=== PATIENT | female | born 1980 | race Caucasian/White ===

== ENCOUNTER 2016-08-17 13:39 | Emergency (ER) | payer OTHER ==
--- NOTE | 2016-08-17 14:10 | ER Document Report ---
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 Patient notes her tongue was swelling was having some difficulty breathing. Patient denies any current complaints after receiving epinephrine. Notes symptoms have all completely resolved TRAVEL OUTSIDE OF THE U.S. IN LAST 30 DAYS: No - HPI Onset: Just prior to arrival Onset/Duration: Sudden Quality of pain: Fullness Severity: Moderate Pain Level: Denies Associated symptoms: Other Exacerbated by: Denies Relieved by: Denies Similar symptoms previously: Yes Recently seen / treated by doctor: No - Related Data Allergies/Adverse Reactions: peanut Allergy (Verified 08/17/16 14:04) Penicillins Allergy (Verified 08/17/16 14:04) Past Medical History - Social History Smoking Status: Unknown if Ever Smoked Cigarette use (# per day): No Chew tobacco use (# tins/day): No Smoking Education Provided: No Family History: Reviewed & Not Pertinent Patient has suicidal ideation: No Patient has homicidal ideation: No Renal/ Medical History: Denies: Hx Peritoneal Dialysis Traumatic Medical History: Reports: Hx Fractures - left ankle left wrist Past Surgical History: Reports: Hx Tonsillectomy, Hx Tubal Ligation - Immunizations Immunizations up to date: Yes Hx Diphtheria, Pertussis, Tetanus Vaccination: Yes Review of Systems - Review of Systems Notes: REVIEW OF SYSTEMS: CONSTITUTIONAL : Denies fever, chills, or sweats. Denies recent illness. EENT: Admits to tongue and throat swelling CARDIOVASCULAR: Denies chest pain. Denies palpitations or racing or irregular heart beat. Denies ankle edema. RESPIRATORY: Denies cough, cold, or chest congestion. Denies shortness of breath, difficulty breathing, or wheezing. GASTROINTESTINAL: Denies abdominal pain or distention. Denies nausea, vomiting , or diarrhea. Denies blood in vomitus, stools, or per rectum. Denies black, tarry stools. Denies constipation. GENITOURINARY: Denies difficulty urinating, painful urination, burning, frequency, blood in urine, or discharge. FEMALE GENITOURINARY: Denies vaginal bleeding, heavy or abnormal periods, irregular periods. Denies vaginal discharge or odor. MUSCULOSKELETAL: Denies back or neck pain or stiffness. Denies joint pain or swelling. SKIN: Denies rash, lesions or sores. HEMATOLOGIC : Denies easy bruising or bleeding. LYMPHATIC: Denies swollen, enlarged glands. NEUROLOGICAL: Denies confusion or altered mental status. Denies passing out or loss of consciousness. Denies dizziness or lightheadedness. Denies headache. Denies weakness or paralysis or loss of use of either side. Denies problems with gait or speech. Denies sensory loss, numbness, or tingling. Denies seizures. PSYCHIATRIC: Denies anxiety or stress. Denies depression, suicidal ideation, or homicidal ideation. ALL OTHER SYSTEMS REVIEWED AND NEGATIVE. Dictation was performed using [employer] voice recognition software PHYSICAL EXAMINATION: GENERAL: Well-appearing, well-nourished and in no acute distress. HEAD: Atraumatic, normocephalic. EYES: Pupils equal round and reactive to light, extraocular movements intact, conjunctiva are normal. ENT: Nares patent, oropharynx clear without exudates. Moist mucous membranes. NECK: Normal range of motion, supple without lymphadenopathy LUNGS: Breath sounds clear to auscultation bilaterally and equal. No wheezes rales or rhonchi. HEART: Regular rate and rhythm without murmurs ABDOMEN: Soft, nontender, nondistended abdomen. No guarding, no rebound. No masses appreciated. Female : deferred Musculoskeletal: Normal range of motion, no pitting or edema. No cyanosis. NEUROLOGICAL: Cranial nerves grossly intact. Normal speech, normal gait. Normal sensory, motor exams PSYCH: Normal mood, normal affect. SKIN: Warm, Dry, normal turgor, no rashes or lesions noted. Physical Exam - Vital signs Vitals: Resp BP Pulse Ox 19 141/72 H 100 08/17/16 13:59 08/17/16 13:59 08/17/16 13:59 Course - Re-evaluation Re-evalutation: 08/17/16 14:06 Patient instructed that she will have to stay to be washing the emergency department for at least 8 hours, she begs to leave sooner, I spent to her that this is not appropriate, but will abide by her request 08/17/16 14:56 Patient notified me that she wishes to leave. I explained my concerns yet again , patient will be leaving AGAINST MEDICAL ADVICE, I will provide her with EpiPen and Benadryl and Pepcid and prednisone and very close return precautions After performing a Medical Screening Examination, I spoke with the patient at length in regards to leaving the hospital against medical advice. I do not believe the patient should leave but the patient is alert oriented x4, understands the risks and benefits of staying and leaving including disability and . Pt understands that he can return at any time for further care and is more than welcome to do so. Pt verbalizes this understanding. 08/17/16 19:08 - Vital Signs Vital signs: Temp Pulse Resp BP Pulse Ox 98.7 F 114 H 13 127/74 H 99 08/17/16 14:04 08/17/16 14:04 08/17/16 15:01 08/17/16 15:01 08/17/16 15:01 Critical Care Note - Critical Care Note Total time excluding time spent on procedures (mins): 37 Comments: 37 minutes of critical care time spent in direct contact evaluating and reevaluating the patient, treating symptoms, reviewing labs and studies and speaking with family and consultants excluding any procedures Discharge - Discharge Clinical Impression: Tongue edema Severe allergic reaction Qualifiers: Encounter type: initial encounter Qualified Code(s): T78.40XA - Allergy, unspecified, initial encounter Condition: Stable Disposition: HOME, SELF-CARE Instructions: Acute Allergic Reaction ([facility]) Additional Instructions: You must return immediately if there are any other concerns Prescriptions: Diphenhydramine HCl [Benadryl 50 mg Capsule] 1 cap PO Q6 PRN #20 capsule PRN Reason: Epinephrine [Epipen 2-Johnson] 0.3 mg IM ASDIR PRN #1 pkt PRN Reason: Famotidine [Pepcid 20 mg Tablet] 20 mg PO DAILY #5 tablet Prednisone [Deltasone 20 mg Tablet] 3 tab PO DAILY 5 Days
[2016-08-17 15:11] VITALS: BP 127/74
== END 2016-08-17 15:30 | disposition home or self-care (01) ==
LOC: ER 13:39
DX: T78.40XA Allergy, unspecified, initial encounter (principal)
CPT/HCPCS: 99285

== ENCOUNTER 2016-10-09 19:40 | Emergency (ER) | payer OTHER ==
[2016-10-09] MEDS ORDERED: OXYCODONE-ACETAMINOPHEN 5-325 MG TABLET PO ONE (19:46)
--- NOTE | 2016-10-09 19:48 | ER Document Report ---
ED Medical Screen (RME) - General Stated Complaint: HAND INJURY Mode of Arrival: Ambulatory Information source: Patient Notes: She presents emergency department with complaints of right hand pain after shutting the car door on her hand. I have greeted and performed a rapid initial assessment of this patient. A comprehensive ED assessment and evaluation of the patient, analysis of test results and completion of the medical decision making process will be conducted by additional ED providers.. TRAVEL OUTSIDE OF THE U.S. IN LAST 30 DAYS: No - Related Data Allergies/Adverse Reactions: peanut Allergy (Verified 08/17/16 14:04) Penicillins Allergy (Verified 08/17/16 14:04) Past Medical History Renal/ Medical History: Denies: Hx Peritoneal Dialysis Traumatic Medical History: Reports: Hx Fractures - left ankle left wrist Past Surgical History: Reports: Hx Tonsillectomy, Hx Tubal Ligation - Immunizations Immunizations up to date: Yes Hx Diphtheria, Pertussis, Tetanus Vaccination: Yes
--- NOTE | 2016-10-09 22:02 | ER Document Report ---
ED Hand/Wrist Injury - General Chief Complaint: Hand Injury Stated Complaint: HAND INJURY Mode of Arrival: Ambulatory Information source: Patient Notes: 36-year-old female presents to the emergency department complaining of right hand pain. Patient reports had hand on door jam of car door when her daughter closed the door crushing her right hand across the middle phalanges of fingers 2 through 4. Denies numbness, tingling, swelling, or color changes. TRAVEL OUTSIDE OF THE [place] IN LAST 30 DAYS: No - HPI Injury to: Hand Onset: Just prior to arrival Quality of pain: Achy Severity: Moderate Pain Level: 3 Context: Crush - Related Data Allergies/Adverse Reactions: peanut Allergy (Verified 08/17/16 14:04) Penicillins Allergy (Verified 08/17/16 14:04) Past Medical History - General Information source: Patient - Social History Smoking Status: Current Every Day Smoker Chew tobacco use (# tins/day): No Frequency of alcohol use: None Drug Abuse: None Lives with: Family Family History: Reviewed & Not Pertinent Patient has suicidal ideation: No Patient has homicidal ideation: No Renal/ Medical History: Denies: Hx Peritoneal Dialysis Traumatic Medical History: Reports: Hx Fractures - left ankle left wrist Past Surgical History: Reports: Hx Tonsillectomy, Hx Tubal Ligation - Immunizations Immunizations up to date: Yes Hx Diphtheria, Pertussis, Tetanus Vaccination: Yes Review of Systems - Review of Systems Constitutional: No symptoms reported EENT: No symptoms reported Cardiovascular: No symptoms reported Respiratory: No symptoms reported Gastrointestinal: No symptoms reported Genitourinary: No symptoms reported Female Genitourinary: No symptoms reported Musculoskeletal: See HPI Skin: No symptoms reported Hematologic/Lymphatic: No symptoms reported Neurological/Psychological: No symptoms reported -: Yes All other systems reviewed and negative Physical Exam - Vital signs Vitals: Temp Pulse Resp BP Pulse Ox 97.4 F 115 H 18 141/84 H 100 10/09/16 19:44 10/09/16 19:44 10/09/16 19:44 10/09/16 19:44 10/09/16 19:44 - General General appearance: Appears well, Alert In distress: None - Respiratory Respiratory status: No respiratory distress Chest status: Nontender Breath sounds: Normal Chest palpation: Normal - Cardiovascular Rhythm: Regular Heart sounds: Normal auscultation Murmur: No Pulses: Normal: Radial Normal capillary refill: Yes - Extremities General upper extremity: Normal inspection, Nontender, Normal color, Normal ROM , Normal strength, Normal temperature. No: Edema General lower extremity: Normal inspection, Nontender, Normal color, Normal ROM , Normal strength, Normal temperature, Normal weight bearing. No: Edema Shoulder: Normal, Nontender Arm: Normal, Nontender Elbow: Normal, Nontender Forearm: Normal, Nontender Wrist: Normal, Nontender Hand: Tender - Tenderness with palpation to middle phalanges of the second through fourth right fingers. No instability or deformity. Immediate capillary refill and sensation intact. Painful range of motion but gross motor function appears intact. No break in skin or open wounds.. No: Normal, Nontender, Abrasion, Deformity, Dislocation, Ecchymosis, Instability, Laceration , Nail injury, No evidence of human bite, No evidence of FB, Swelling, Tendon deficit, Other Course - Re-evaluation Re-evalutation: 10/09/16 22:02 Patient hemodynamically stable, in no distress. X-rays negative for osseous injury. Neurovascular function appears intact. Patient declined any Alexis wrap or splinting at this time. Patient appears stable for discharge and agrees with home care, follow-up, and ED return precautions. - Vital Signs Vital signs: Temp Pulse Resp BP Pulse Ox 97.4 F 116 H 18 141/84 H 100 10/09/16 19:45 10/09/16 19:45 10/09/16 19:45 10/09/16 19:45 10/09/16 19:45 - Diagnostic Test Radiology reviewed: Image reviewed, Reports reviewed Discharge - Discharge Clinical Impression: Hand contusion Qualifiers: Encounter type: initial encounter Laterality: right Qualified Code(s): S60.221A - Contusion of right hand, initial encounter Condition: Stable Disposition: HOME, SELF-CARE Instructions: Contusion ([facility]), Ice & Elevation ([facility]), Anti-Inflammatory Medication ([facility]) Additional Instructions: Follow-up with your primary care provider this week and orthopedics if needed for weakness as discussed. Return to the emergency department for any worsening symptoms or concerns. Prescriptions: Naproxen [Naprosyn 375 Mg Tablet] 375 mg PO BIDP PRN #10 tablet PRN Reason: Forms: Elevated Blood Pressure Referrals: ASHLEIGH GARCIA DO [ACTIVE STAFF] - Follow up as needed [facility] [NO LOCAL MD] - Follow up in 3-5 days
[2016-10-09 23:14] VITALS: BP 119/76
== END 2016-10-09 23:10 | disposition home or self-care (01) ==
LOC: ER 19:40
DX: S60.221A Contusion of right hand, initial encounter (principal); F17.200 Nicotine dependence, unspecified, uncomplicated; W23.1XXA Caught, crushed, jammed, or pinched between stationary objects, initial encounter; Z98.51 Tubal ligation status
CPT/HCPCS: 99283

== ENCOUNTER 2016-12-05 07:45 | Emergency (ER) | payer OTHER ==
[2016-12-05 07:50] VITALS: BP 157/95
[2016-12-05] MEDS ORDERED: BUPIVACAINE HCL 0.5 % INJ/PF 30 ML SDV INJ ONE (08:12)
[2016-12-05] MEDS ORDERED: CLINDAMYCIN HCL 150 MG CAPSULE PO ONE (08:12)
--- NOTE | 2016-12-05 08:14 | ER Document Report ---
HPI - HPI Patient complains to provider of: toothache Pain Level: 5 Context: Patient is a 28-year-old female presents emergency Department complaining of tooth pain. Patient states that she fractured her back left bottom molar, tooth #17 on Tuesday she didn't have pain started until Tuesday. She denies any fevers or chills. Any difficulty swallowing, breathing, any foul odor or drainage. She does not have a dentist she has not had a dentist for about 2 years. She has a current pack a day smoker. - REPRODUCTIVE Reproductive: DENIES: : - DERM Skin Color: Normal Past Medical History - Social History Smoking Status: Current Every Day Smoker Family History: Reviewed & Not Pertinent Patient has suicidal ideation: No Patient has homicidal ideation: No Renal/ Medical History: Denies: Hx Peritoneal Dialysis Traumatic Medical History: Reports: Hx Fractures - left ankle left wrist Past Surgical History: Reports: Hx Tonsillectomy, Hx Tubal Ligation - Immunizations Immunizations up to date: Yes Hx Diphtheria, Pertussis, Tetanus Vaccination: Yes Vertical Provider Document - CONSTITUTIONAL Agree With Documented VS: Yes Exam Limitations: No Limitations General Appearance: WD/WN, No Apparent Distress - Tearful but cooperative - INFECTION CONTROL TRAVEL OUTSIDE OF THE [place] IN LAST 30 DAYS: No - HEENT HEENT: Atraumatic, Normocephalic, PERRLA. negative: Pharyngeal Exudate, Pharyngeal Tenderness, Pharyngeal Erythema, Tympanic Membrane Red, Tympanic Membrane Bulging Mouth Diagram: 1 - Dental fractures and tenderness 2 - Chronic fracture 3 - Decay Notes: Uvula midline. Airway patent. No evidence of tonsillar enlargement, peritonsillar abscess, retropharyngeal abscess. - NECK Neck: Normal Inspection, Other - No evidence of Harrison's angina. negative: Lymphadenopathy-Left, Lymphadenopathy-Right - RESPIRATORY Respiratory: Breath Sounds Normal, No Respiratory Distress, Chest Non-Tender. negative: Rales, Rhonchi, Wheezing O2 Sat by Pulse Oximetry: 97 - CARDIOVASCULAR Cardiovascular: Regular Rate, Regular Rhythm, No Murmur - NEURO Level of Consciousness: Awake, Alert, Appropriate Course - Re-evaluation Re-evalutation: 12/05/16 10:17 Patient is a 36-year-old female who presents with tooth pain. No evidence of abscess. Patient received a 5 mL Sensorcaine dental block with resolution of her symptoms. Given clindamycin and dental follow-up - Vital Signs Vital signs: Temp Pulse Resp BP Pulse Ox 97.8 F 120 H 18 157/95 H 97 12/05/16 07:49 12/05/16 07:49 12/05/16 07:49 12/05/16 07:49 12/05/16 07:49 Discharge - Discharge Clinical Impression: Toothache Condition: Good Disposition: HOME, SELF-CARE Instructions: Clindamycin ([facility]), Oral Narcotic Medication ([facility]), Toothache ([facility] ) Additional Instructions: [facility] [address] [place], [place] Tuesday mornings, by appointment [facility] [address] [place] [address] [facility] [address] [facility] [address] [facility] [address] [email or web address] [address] [place] [address] Tuesday- 8:00am to 5:00 pm Will see patients from other [facility]. Charges based on income and family size and accepts Medicare, Medicaid, and Insurances Will pull molars [facility] [address] Hours of Operation 8:00 am - 4:30 pm weekdays The following dental offices accept Medicaid: [facility] Dr. Saenz Dr. Estrella Dr. Shipman Dr. Fonseca Micky Leyva Lutsavage, and Walker oral surgery Dr. Dorado ([place]) Dr. Wayne ([place]) [facility] Drs. Soliz and Pernell ([place]) Dr. Mcmahon ([place]) [facility] Dr. Ritchie ([place]) Drs. Bird and ([place]) Medicaid Care Line Prescriptions: Clindamycin HCl 300 mg PO Q6H 10 Days Oxycodone HCl/Acetaminophen [Percocet 5-325 mg Tablet] 1 tab PO ASDIR PRN #15 tab PRN Reason: Forms: Elevated Blood Pressure
== END 2016-12-05 08:39 | disposition home or self-care (01) ==
LOC: ER 07:45
PROC: 3E0T3BZ Introduction of Anesthetic Agent into Peripheral Nerves and Plexi, Percutaneous Approach (ICD-10-PCS; principal; 2016-12-05)
DX: K02.9 Dental caries, unspecified (principal); K08.89 Other specified disorders of teeth and supporting structures; F17.200 Nicotine dependence, unspecified, uncomplicated
CPT/HCPCS: 99282

== ENCOUNTER 2019-01-16 20:15 | Emergency (ER) | payer OTHER ==
[2019-01-16 20:44] VITALS: BP 138/91
--- NOTE | 2019-01-16 22:17 | RADIOLOGY REPORT (SQ) ---
EXAM DESCRIPTION: XR ANKLE 3 OR MORE VIEWS COMPLETED DATE/TME: 01/16/2019 21:15 CLINICAL HISTORY: 38 years, Female, pain COMPARISON: None. NUMBER OF VIEWS: Three TECHNIQUE: Frontal, oblique, and lateral radiographs of the right ankle were obtained. LIMITATIONS: None. FINDINGS: Visualized osseous structures are normal in appearance. Joint spaces are well-maintained. No acute fracture or dislocation is evident. IMPRESSION: No acute osseous anomaly. copyright 2010 [employer]- All Rights Reserved
[2019-01-17] MEDS ORDERED: HYDROCODONE/ACETAMINOPHEN 5-325 MG (6 TAB/ER DISP) PO PRN (00:26)
[2019-01-17] MEDS ORDERED: HYDROCODONE/ACETAMINOPHEN 5-325 MG TABLET PO ONE (00:26)
--- NOTE | 2019-01-17 00:27 | ER Document Report ---
ED General - General Chief Complaint: Ankle Injury Stated Complaint: RIGHT ANKLE INJURY Time Seen by Provider: 01/17/19 00:22 Mode of Arrival: Ambulatory Information source: Patient TRAVEL OUTSIDE OF THE [place].S[place] IN LAST 30 DAYS: No - HPI Patient complains to provider of: Twisted right ankle Onset: Other - 8 days ago Onset/Duration: Sudden Quality of pain: Stabbing, Throbbing Severity: Severe Pain Level: 4 Associated symptoms: None Exacerbated by: Movement, Walking Relieved by: Denies Similar symptoms previously: No Notes: 38-year-old female presenting for right ankle pain and swelling. She rolled it about 8 days ago. Continues to hurt. Patient has not stayed off of it or rested it. She is continued to work. - Related Data Allergies/Adverse Reactions: peanut Allergy (Verified 12/05/16 07:50) Penicillins Allergy (Verified 12/05/16 07:50) Past Medical History - General Information source: Patient - Social History Smoking Status: Never Smoker Chew tobacco use (# tins/day): No Frequency of alcohol use: None Drug Abuse: None Family History: Reviewed & Not Pertinent Patient has suicidal ideation: No Patient has homicidal ideation: No Renal/ Medical History: Denies: Hx Peritoneal Dialysis Traumatic Medical History: Reports: Hx Fractures - left ankle left wrist Past Surgical History: Reports: Hx Tonsillectomy, Hx Tubal Ligation - Immunizations Immunizations up to date: Yes Hx Diphtheria, Pertussis, Tetanus Vaccination: Yes Review of Systems - Review of Systems Notes: Constitutional: No fevers. No chills. EENT: No eye redness. No eye pain. No ear pain. No sore throat. Cardiovascular: No chest pain. No palpitations. Respiratory: No cough. No shortness of breath. No respiratory distress. Gastrointestinal: No abdominal pain. No nausea, vomiting, or diarrhea. Genitourinary: Atraumatic. No lesions. No pain. No discharge. Musculoskeletal: Positive right ankle pain and swelling Skin: No rash or lesions. Lymphatic: No swollen lymph nodes. Neurologic: No headache. No syncope. Psychiatric: No suicidal or homicidal ideation. Physical Exam - Vital signs Vitals: Temp Pulse Resp BP Pulse Ox 97.9 F 112 H 16 138/91 H 99 01/16/19 20:34 01/16/19 20:34 01/16/19 20:34 01/16/19 20:34 01/16/19 20:34 - Notes Notes: General: Well-developed, well-nourished. In no acute distress. Non-toxic appearing. Cardiac: Well-perfused. Regular rate and rhythm. No murmurs, rubs, or gallops. Pulmonary: No respiratory distress. No cyanosis. Bilateral lung fiels are clear to auscultation. Abdominal: Non-distended. Non-rigid. Bowels sounds are present in all four quadrants. No guarding or rebound. HEENT: Head is atraumatic. Conjunctivae not reddened. No tearing. PERRL. EOMI. Orbits atraumatic. No periorbital swelling or erythema. Oropharynx is without erythema, swelling, or exudates. Neck: Supple. No adenopathy. No meningismus. Dermatologic: Warm with good turgor. No rash. Atraumatic. Chest: Atraumatic. No chest wall tenderness to palpation. Musculoskeletal: Right lower extremity examined. Right foot is examined and normal. Right ankle tender to lateral and medial malleoli with lateral being more tender. No bony deformities. Distal neurovascular exam is intact. Range of motion is grossly intact. Genitourinary: Examination deferred Neurologic: No gross neurologic deficits. Psychiatric: Normal mood. Course - Re-evaluation Re-evalutation: 01/17/19 00:24 X-rays read and negative Alexis wrap and crutch and refer to Ortho follow-up in 1 week if not better - Vital Signs Vital signs: Temp Pulse Resp BP Pulse Ox 97.9 F 112 H 16 138/91 H 99 01/16/19 20:34 01/16/19 20:34 01/16/19 20:34 01/16/19 20:34 01/16/19 20:34 Discharge - Discharge Clinical Impression: Right ankle sprain Qualifiers: Encounter type: initial encounter Involved ligament of ankle: unspecified ligament Qualified Code(s): S93.401A - Sprain of unspecified ligament of right ankle, initial encounter Condition: Good Disposition: HOME, SELF-CARE Instructions: Alexis Wrap ([facility]), Use of Crutches ([facility]), Ice & Elevation ([facility]), Ice Packs ([facility]), Oral Narcotic Medication ([facility]), Sprained Ankle ([facility]) Additional Instructions: Do not bear weight on your ankle as this will injure the ligaments. Stay off of it is much possible. Ice and elevate above the level of your heart to help with swelling. Naproxen is being prescribed to you to be given twice a day as needed for pain and swelling. He will have a limited number of pain pills which will help alleviate the immediate severe pain. If your symptoms are not improved in 1 week you need to follow-up with Dr. Wynn the orthopedist Prescriptions: Naproxen 500 mg PO BID 7 Days #14 tablet Referrals: MARK WYNN MD [ACTIVE STAFF] - Follow up in 1 week
== END 2019-01-17 00:41 | disposition home or self-care (01) ==
LOC: ER 20:15
DX: S93.401A Sprain of unspecified ligament of right ankle, initial encounter (principal); X50.0XXA Overexertion from strenuous movement or load, initial encounter; Z98.51 Tubal ligation status; Z88.0 Allergy status to penicillin; Z91.010 Allergy to peanuts
CPT/HCPCS: 99283

== ENCOUNTER 2019-07-04 18:15 | Emergency (ER) | payer BC ==
[2019-07-04 18:41] VITALS: BP 142/71
--- NOTE | 2019-07-04 19:08 | ER Document Report ---
HPI - HPI Time Seen by Provider: 07/04/19 19:01 Pain Level: 3 Notes: Patient is a 39-year-old female with no significant past medical history presents complaining of left lower dental pain #19 for the past couple days. She is also had some nasal congestion and discharge with left ear pain. She is not sure if the ear pain is stemming from the tooth or vice versa. No other concerns or complaints. She is able to eat and drink without difficulty. She is urinating normally. Denies any headache, fever, neck pain, changes in vision/speech/mentation/hearing, sore throat, chest pain, palpitations, syncope, cough, shortness of breath, wheeze, dyspnea, abdominal pain, nausea/vomiting/diarrhea, urinary retention, dysuria, hematuria, or rash. - ROS Systems Reviewed and Negative: Yes All other systems reviewed and negative - REPRODUCTIVE Reproductive: DENIES: : Past Medical History - Social History Smoking Status: Current Every Day Smoker Family History: Reviewed & Not Pertinent Patient has suicidal ideation: No Patient has homicidal ideation: No Renal/ Medical History: Denies: Hx Peritoneal Dialysis Traumatic Medical History: Reports: Hx Fractures - left ankle left wrist Past Surgical History: Reports: Hx Tonsillectomy, Hx Tubal Ligation - Immunizations Immunizations up to date: Yes Hx Diphtheria, Pertussis, Tetanus Vaccination: Yes Vertical Provider Document - CONSTITUTIONAL Agree With Documented VS: Yes Notes: PHYSICAL EXAMINATION: GENERAL: Well-appearing, well-nourished and in no acute distress. HEAD: Atraumatic, normocephalic. EYES: Pupils equal round and reactive to light, extraocular movements intact, sclera anicteric, conjunctiva are normal. ENT: EAC clear b/l. TM's intact b/l without erythema, fluid, or perforation. Nares patent and without discharge. oropharynx clear without exudates. No tonsilar hypertrophy or erythema. Moist mucous membranes. No sinus tenderness. Uvula midline. No palatine shift. No tongue protrusion. No respiratory compromise. Mouth: Poor dentition. + severe decay and mild gingivitis. No obvious abscess or discharge noted. No facial swelling. + tenderness to tooth #19. NECK: Normal range of motion, supple without lymphadenopathy. No rigidity/meningismus. LUNGS: Breath sounds clear to auscultation bilaterally and equal. No wheezes rales or rhonchi. HEART: Regular rate and rhythm without murmurs, rubs, gallops. NEUROLOGICAL: Cranial nerves grossly intact. Normal speech, normal gait. Normal sensory, motor exams PSYCH: Normal mood, normal affect. SKIN: Warm, Dry, normal turgor, no rashes or lesions noted. - INFECTION CONTROL TRAVEL OUTSIDE OF THE [place] IN LAST 30 DAYS: No Course - Re-evaluation Re-evalutation: 07/04/19 19:06 Patient is an afebrile, well-hydrated, 39-year-old female who presents to the ED with dental pain, suspect nerve root etiology versus infection, and URI, suspect viral. Vitals are acceptable. PE is otherwise unremarkable. No I&D, labs, or imaging warranted at this time based on H&P. I will send her home with a prescription for cleocin. Low suspicion for any meningitis, sepsis, peritonsillar/pharyngeal abscess, respiratory compromise, Harrison's, temporal arteritis, mastoiditis, or other emergent systemic condition at this time. Patient is aware this condition can change from initial presentation and she needs to monitor symptoms closely. Conservative measures otherwise for symptoms. Call to schedule an appointment with a dentist for further evaluation and management. Recheck with your PCM this week as well. Return to the ED with any worsening/concerning symptoms otherwise as reviewed in discharge. Patient is in agreement. - Vital Signs Vital signs: Temp Pulse Resp BP Pulse Ox 98.2 F 115 H 18 142/71 H 99 07/04/19 18:58 07/04/19 18:58 07/04/19 18:58 07/04/19 18:58 07/04/19 18:58 Discharge - Discharge Clinical Impression: Pain, dental, Acute URI Condition: Stable Disposition: HOME, SELF-CARE Instructions: Upper Respiratory Illness ([facility]), Toothache ([facility]), Clindamycin ([facility]) Additional Instructions: [place] and floss twice daily Maintain fluid intake Take antibiotics as directed Mouthwash, salt water gargles, peroxide rinse as needed Tylenol/ibuprofen as needed Recheck with PCM this week Call today/tomorrow and schedule an appointment with your dentist for further evaluation Return to the ED with any worsening symptoms and/or development of fever, headache, facial swelling, swelling of lips/tongue/throat, trouble swallowing, drooling, hoarseness, neck pain/stiffness, chest pain, palpitations, syncope, shortness of breath, trouble breathing, abdominal pain, n/v/d, numbness/tingling, or other worsening symptoms that are concerning to you. Prescriptions: Clindamycin HCl [Cleocin 300 mg Capsule] 300 mg PO TID #30 capsule Forms: Elevated Blood Pressure, Smoking Cessation Education Referrals: [facility] [Provider Group] - Follow up as needed
== END 2019-07-04 19:14 | disposition home or self-care (01) ==
LOC: ER 18:15
DX: K02.9 Dental caries, unspecified (principal); K05.10 Chronic gingivitis, plaque induced; J06.9 Acute upper respiratory infection, unspecified; K08.89 Other specified disorders of teeth and supporting structures; R09.81 Nasal congestion; H92.02 Otalgia, left ear; F17.200 Nicotine dependence, unspecified, uncomplicated
CPT/HCPCS: 99282

== ENCOUNTER 2020-01-15 23:59 | Emergency (ER) | payer OTHER, BC ==
[2020-01-16 00:07] VITALS: BP 139/81
[2020-01-16] MEDS ORDERED: DIPH/PERTUSS(ACELL)/TETANUS VAC/PF 0.5 ML SYR (>=10YO) IM ONE (00:51)
--- NOTE | 2020-01-16 00:54 | ER Document Report ---
ED Medical Screen (RME) - General Stated Complaint: CUT TO THUMB LEFT HAND Time Seen by Provider: 01/16/20 00:51 Mode of Arrival: Ambulatory Information source: Patient Notes: HPI; 39-year-old female presents emergency room with a laceration to the lateral distal aspect of her left thumb. 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 Unknown last tetanus shot. Eating is controlled. Patient is right-handed. States she took Tylenol and naproxen prior to arrival without relief. PE: Alert and oriented x3. Moderate distress noted. laceration noted along the distal aspect of the nail on the left thumb. Bleeding is controlled. Positive left radial pulse. Capillary refill less than 3 seconds. I have greeted and performed a rapid initial assessment of this patient. A comprehensive ED assessment and evaluation of the patient, analysis of test results and completion of the medical decision making process will be conducted by additional ED providers. I have specifically instructed the patient or family members with the patient to immediately return to any nursing staff should anything change in the patient's condition or with their chief complaint. TRAVEL OUTSIDE OF THE [place] IN LAST 30 DAYS: No - Related Data Allergies/Adverse Reactions: ibuprofen [From Advil] Allergy (Verified 07/04/19 18:58) peanut Allergy (Verified 12/05/16 07:50) Penicillins Allergy (Verified 12/05/16 07:50) Past Medical History Renal/ Medical History: Denies: Hx Peritoneal Dialysis Traumatic Medical History: Reports: Hx Fractures - left ankle left wrist Past Surgical History: Reports: Hx Tonsillectomy, Hx Tubal Ligation - Immunizations Immunizations up to date: Yes Hx Diphtheria, Pertussis, Tetanus Vaccination: Yes Physical Exam - Vital signs Vitals: Temp Pulse Resp BP Pulse Ox 98.4 F 116 H 20 139/81 H 98 01/16/20 00:04 01/16/20 00:04 01/16/20 00:04 01/16/20 00:04 01/16/20 00:04 Course - Vital Signs Vital signs: Temp Pulse Resp BP Pulse Ox 98.4 F 116 H 20 139/81 H 98 01/16/20 00:04 01/16/20 00:04 01/16/20 00:04 01/16/20 00:04 01/16/20 00:04
[2020-01-16] MEDS ORDERED: CEPHALEXIN 500 MG CAPSULE PO ONE (01:26)
[2020-01-16] MEDS ORDERED: OXYCODONE-ACETAMINOPHEN 5-325 MG TABLET PO ONE (01:26)
[2020-01-16] MEDS ORDERED: PROMETHAZINE HCL 25 MG TABLET PO ONE (01:26)
--- NOTE | 2020-01-16 01:27 | ER Document Report ---
HPI - HPI Time Seen by Provider: 01/16/20 00:51 Pain Level: 4 Context: Patient is a 39-year-old female that comes emergency department for chief complaint of laceration to the dorsal left thumb just adjacent to the nail laterally at the base. 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 She denies any deep wounds. She denies any other injuries. She has not up-to-date on her tetanus. She does not have diabetes, she is not on a blood thinner. - REPRODUCTIVE Reproductive: DENIES: : Past Medical History - General Information source: Patient - Social History Smoking Status: Current Every Day Smoker Family History: Reviewed & Not Pertinent Patient has homicidal ideation: No Renal/ Medical History: Denies: Hx Peritoneal Dialysis Traumatic Medical History: Reports: Hx Fractures - left ankle left wrist Past Surgical History: Reports: Hx Tonsillectomy, Hx Tubal Ligation - Immunizations Immunizations up to date: Yes Hx Diphtheria, Pertussis, Tetanus Vaccination: Yes Vertical Provider Document - CONSTITUTIONAL General Appearance: WD/WN. negative: No Apparent Distress - Patient is obviously anxious but is not in distress otherwise - INFECTION CONTROL TRAVEL OUTSIDE OF THE [place] IN LAST 30 DAYS: No - HEENT HEENT: Atraumatic, Normocephalic - NECK Neck: Normal Inspection - RESPIRATORY Respiratory: Breath Sounds Normal, No Respiratory Distress - CARDIOVASCULAR Cardiovascular: Regular Rate, Regular Rhythm. negative: Tachycardia - patient is not tachycardic on my exam - GI/ABDOMEN Gastrointestinal: Abdomen Soft, Abdomen Non-Tender. negative: Abdomen Tender - BACK Back: Normal Inspection - MUSCULOSKELETAL/EXTREMETIES Musculoskeletal/Extremeties: MAEW, FROM, Tender - There is a very superficial curved 0.5 cm laceration over the left dorsal thumb just adjacent to the nail laterally but not including the nail or cuticle. Small amount of dried blood. Normal range of motion and strength against resistance in flexion and extension. Normal capillary refill and sensation. Otherwise unremarkable. - NEURO Level of Consciousness: Awake, Alert, Appropriate - Very anxious and nervous but otherwise appropriate Motor/Sensory: No Motor Deficit, No Sensory Deficit - DERM Integumentary: Warm, No Rash Course - Re-evaluation Re-evalutation: Patient with a very superficial laceration. She is very anxious about this. Discussed options, patient is requesting closure with Dermabond. She was also given prophylaxis because she states the door was dirty. Because the wound was so small and superficial I did clean this thoroughly and closed this with Dermabond. Discussed care, follow-up, return cautions. Patient states understanding and agreement. - Vital Signs Vital signs: Temp Pulse Resp BP Pulse Ox 98.4 F 116 H 20 139/81 H 98 01/16/20 00:50 01/16/20 00:04 01/16/20 00:04 01/16/20 00:04 01/16/20 00:04 Procedures - Laceration/Wound Repair Left thumb Wound length (cm): 0.5 Wound's Depth, Shape: Superficial Laceration pre-procedure: Sterile PPE donned, Sterile drapes applied, Shur-Clens applied Wound explored: Clean, No foreign body removed Wound Repaired With: Dermabond Layer Closure?: No Post-procedure NV exam normal: Yes Complications: No Discharge - Discharge Clinical Impression: Thumb laceration Qualifiers: Encounter type: initial encounter Damage to nail status: without damage Foreign body presence: without foreign body Laterality: left Qualified Code(s): S61.012A - Laceration without foreign body of left thumb without damage to nail, initial encounter Condition: Stable Disposition: HOME, SELF-CARE Additional Instructions: The laceration has been cleaned and repaired, we have placed you on antibiotics, take antibiotics to completion. The wound has been closed with Dermabond, this will protect the area, this should fall off in about 5-7 days on its own. You can clean the area but avoid soaking or scrubbing the area. If the dermabond has not come off on its own after a week you can remove this by applying a topical antibiotic. Follow-up with primary care. Return for any concerning symptoms including signs of infection such as pain, developing redness, fever, or any other concerning or worsening symptoms. Prescriptions: Cephalexin Monohydrate [Keflex 500 mg Capsule] 500 mg PO TID 5 Days #15 capsule Forms: Return to Work
== END 2020-01-16 01:45 | disposition home or self-care (01) ==
LOC: ER 23:59
DX: S61.012A Laceration without foreign body of left thumb without damage to nail, initial encounter (principal); W26.8XXA Contact with other sharp object(s), not elsewhere classified, initial encounter; Y93.89 Activity, other specified; Y92.511 Restaurant or cafe as the place of occurrence of the external cause; Y99.0 Civilian activity done for income or pay; Z23 Encounter for immunization; F17.200 Nicotine dependence, unspecified, uncomplicated
CPT/HCPCS: 90471; 90715; 99282

== ENCOUNTER 2020-06-16 17:29 | Emergency (ER) | payer BC ==
[2020-06-16 18:13] VITALS: BP 136/89
[2020-06-16] MEDS ORDERED: LIDOCAINE 2% VISCOUS SOLN 15 ML UDCUP PO ONE (19:15)
[2020-06-16] MEDS ORDERED: CLINDAMYCIN HCL 150 MG CAPSULE PO ONE (19:15)
--- NOTE | 2020-06-16 19:16 | ER Document Report ---
ED Oral Problem - General Chief Complaint: Toothache Stated Complaint: TOOTHACHE Time Seen by Provider: 06/16/20 19:11 Mode of Arrival: Ambulatory Information source: Patient Notes: 40-year-old female presents to ED for complaint of left lower jaw pain. She states it has been hurting for 13 days. Both teeth are broken off at the gumline. There is redness to the gums around both teeth. There is no definite abscess noted. States she does have an appointment with the dentist on Tuesday. Patient states the teeth have been broken off to the jawline about a year but they have been more painful for the last 14 days. Constitutional: Negative for fever. HENT: Negative for sore throat. Teeth broken off at the gumline tooth #18 and 19 Eyes: Negative for visual changes. Cardiovascular: Negative for chest pain. Respiratory: Negative for shortness of breath. Gastrointestinal: Negative for abdominal pain, vomiting or diarrhea. Genitourinary: Negative for dysuria. Musculoskeletal: Negative for back pain. Skin: Negative for rash. Neurological: Negative for headaches, weakness or numbness. 10 point ROS negative except as marked above and in HPI. PHYSICAL EXAMINATION: GENERAL: Well-appearing, well-nourished and in no acute distress. HEAD: Atraumatic, normocephalic. EYES: Pupils equal round extraocular movements intact, conjunctiva are normal. ENT: Nares patent, tooth #18 and 19 broken off at the gum. Redness swelling to the gums. No obvious abscess. Very tender to palpation NECK: Normal range of motion LUNGS: No respiratory distress Musculoskeletal: Normal range of motion NEUROLOGICAL: Normal speech, normal gait. PSYCH: Normal mood, normal affect. SKIN: Warm, Dry, normal turgor, no rashes or lesions noted. TRAVEL OUTSIDE OF THE [place] IN LAST 30 DAYS: No - HPI Patient complains to provider of: Toothache Onset: Other - 14 days Onset: Gradual Quality of pain: Sharp Severity: Moderate Pain Level: 3 Associated symptoms: Toothache Worsened by: Cold Similar symptoms previously: Yes Recently seen / treated by doctor/dentist: No - Related Data Allergies/Adverse Reactions: ibuprofen [From Advil] Allergy (Verified 07/04/19 18:58) peanut Allergy (Verified 12/05/16 07:50) Penicillins Allergy (Verified 12/05/16 07:50) Past Medical History - General Information source: Patient - Social History Smoking Status: Current Every Day Smoker - vape Frequency of alcohol use: None Drug Abuse: None 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 Lives with: Family Family History: Reviewed & Not Pertinent Patient has suicidal ideation: No Patient has homicidal ideation: No - Past Medical History Cardiac Medical History: Reports: None Pulmonary Medical History: Reports: None EENT Medical History: Reports: None Neurological Medical History: Reports: None Endocrine Medical History: Reports: None Renal/ Medical History: Reports: None Malignancy Medical History: Reports: None GI Medical History: Reports: None Musculoskeletal Medical History: Reports Hx Musculoskeletal Trauma Skin Medical History: Reports None Psychiatric Medical History: Reports: None Traumatic Medical History: Reports: Hx Fractures - left ankle left wrist Infectious Medical History: Reports: None Past Surgical History: Reports: Hx Tonsillectomy, Hx Tubal Ligation - Immunizations Immunizations up to date: Yes Hx Diphtheria, Pertussis, Tetanus Vaccination: Yes Physical Exam - Vital signs Vitals: Temp Pulse Resp BP Pulse Ox 97.9 F 116 H 18 136/89 H 100 06/16/20 18:12 06/16/20 18:12 06/16/20 18:12 06/16/20 18:12 06/16/20 18:12 Course - Re-evaluation Re-evalutation: 06/16/20 19:25 Presentation is most consistent with likely an infected tooth. Airway is patent. Vitals within normal limits. Patient is able swallow without any difficulty. There is no significant facial swelling. No evidence of Harrison angina, apical abscess, or airway obstruction. Patient will be started on antibiotics. I've instructed to follow-up with dentistry as earliest ability for definitive management. At this time will discharge with return precautions and follow-up recommendations. Verbal discharge instructions given a the bedside and opportunity for questions given. Medication warnings reviewed. Patient is in agreement with this plan and has verbalized understanding of return precautions and the need for primary care follow-up in the next 24-72 hours. - Vital Signs Vital signs: Temp Pulse Resp BP Pulse Ox 97.9 F 116 H 18 136/89 H 100 06/16/20 18:12 06/16/20 18:12 06/16/20 18:12 06/16/20 18:12 06/16/20 18:12 Discharge - Discharge Clinical Impression: Pain due to dental caries Condition: Stable Disposition: HOME, SELF-CARE Additional Instructions: TOOTHACHE: Your pain is due to dental decay. The tooth must be repaired in order for you to feel better. You will, therefore, be referred to a dentist. We do not have dentists on the staff at [facility]. Severe swelling or drainage around a tooth usually means a dental abscess. This also requires evaluation and treatment by the dentist, but antibiotics may be prescribed while awaiting dental treatment. You should be rechecked immediately if you develop major swelling of the face, increasing pain, a lump in the jaw or gums, headache, difficulty swallowing, or fever. CLINDAMYCIN: You have been given a prescription for the antibiotic clindamycin. It is often prescribed for infections in the mouth, such as dental infections or abscesses, and for skin infections due to MRSA. It's important that you take all the medication, unless instructed otherwise by your physician. Failure to complete the entire course can result in relapse of your condition. Common side effects of antibiotics include nausea, intestinal cramping, or diarrhea. Women may develop vaginal yeast infections, and babies can get yeast (thrush) in the mouth following the use of antibiotics. Contact your physician if you develop significant side effects from this medication. Allergy to this antibiotic can result in hives, wheezing, faintness, or itching. If symptoms of allergy occur, stop the medication and call the doctor. You have been given a syringe of viscous lidocaine. Please place a small amount on your finger rub it to the gums and tooth. Please do not stick the syringe in your mouth or you will contaminate the syringe. Please do not use more often than every 4 hours or will erode the skin on your gums and cause you more pain. Please do not use your vapor cigarette or a straw until 10 days after these teeth have been removed. FOLLOW-UP CARE: You have been referred for follow-up care to the dentists listed below. Call the dentists office for an appointment as you were instructed or within the next two days. If you experience worsening or a significant change in your symptoms, notify the physician immediately or return to the Emergency Department at any time for re-evaluation. [facility] [address] [place] [address] [facility] [address] [facility] [address] [place] [email or web address] [address] [place] [address] Tuesday- 8:00am to 5:00 pm Will see patients from other [facility]. Charges based on income and family size and accepts Medicare, Medicaid, and Insurances Will pull molars [facility] [id number] Hours of Operation 8:00 am - 4:30 pm weekdays The following dental offices accept Medicaid: [facility] Dr. Saenz Dr. Estrella Dr. Shipman Dr. Fonseca Micky Leyva Lutsavage, and [facility] Dr. Dorado ([place]) Dr. Wayne ([place]) [facility] Drs. Soliz and Pernell ([place]) Dr. Mcmahon ([place]) [facility] Dr. Ritchie ([place]) Drs. Bird and ([place]) Medicaid Care Line Prescriptions: Clindamycin HCl 300 mg PO Q6 #40 capsule Forms: Elevated Blood Pressure, Smoking Cessation Education
== END 2020-06-16 19:26 | disposition home or self-care (01) ==
LOC: ER 17:29
DX: K02.9 Dental caries, unspecified (principal); F17.290 Nicotine dependence, other tobacco product, uncomplicated; Z98.51 Tubal ligation status
CPT/HCPCS: 99283; J3490